=== PATIENT | male | born 1925 | race Caucasian/White ===

== ENCOUNTER 2016-12-03 19:12 | Inpatient (IN) | payer MEDICARE, BC ==
[~2016-12-03] VITALS: Ht 170.2 cm; Wt 68.9 kg
[2016-12-03] MEDS ORDERED: LIDOCAINE/EPI 1% MDV 20 ML ONE (21:15)
[2016-12-03] MEDS ORDERED: SALINE FLUSH 10 ML FLUSH PRN (23:15)
[2016-12-03] MEDS ORDERED: ACETAMINOPHEN 325 MG TAB PO PRN (23:15)
[2016-12-04 01:35] VITALS: Ht 170.2 cm; Wt 68.9 kg
[2016-12-04 01:46] VITALS: BP_SYST 171; RESP 18; TEMP 97.7
[2016-12-04] MEDS ORDERED: SODIUM CHLORIDE 0.9% FLUSH BAG 500 ML IV SCH (06:00)
[2016-12-04] MEDS ORDERED: POLYETHYLENE GLYCOL 17 GM PACKET PO PRN (06:40)
[2016-12-04 07:13] VITALS: BP_SYST 150; RESP 18; TEMP 97.5
[2016-12-04] MEDS ORDERED: SALINE FLUSH 10 ML FLUSH SCH (08:00)
[2016-12-04] MEDS ORDERED: MISSING DOSE XX ONE (08:30)
[2016-12-04] MEDS ORDERED: TIMOLOL 0.5% OP SOLN 5 ML EYE EACH SCH (09:00)
[2016-12-04 11:16] VITALS: BP_SYST 153; RESP 18; TEMP 98.7
[2016-12-04 13:40] VITALS: BP_SYST 153; RESP 18; TEMP 98.7
[2016-12-04] MEDS ORDERED: DORZOLAMIDE 2% EYE RT SCH (21:00)
== END 2016-12-04 15:28 | disposition home or self-care (01) | DRG 87 ==
LOC: ENRESERVTM → ENRESERVDT → ER 19:12 → EMR 23:11 → ENPENDDIS 23:11 → 5THE 12-04 01:26
PROVIDERS: ADMIT Internal Medicine; ATTEND Internal Medicine
PROC: 0HQ0XZZ Repair Scalp Skin, External Approach (ICD-10-PCS; principal; 2016-12-04)
CPT/HCPCS: 36415; 70450; 71020; 72125; 80048; 80053; 81003; 82553; 83880; 84484; 85025; 85610; 85730; 93005